=== PATIENT | male | born 1930 | race Caucasian/White ===

== ENCOUNTER 2016-11-10 05:07 | Inpatient (IN) | payer MEDICARE, OTHER ==
[~2016-11-10 05:07] MED LIST: COUMADIN6 M1 PO; FLOMAX0.4 M1 PO; HYDRALAZINE HCL50 M1 PO; LOVENOX30 MG/0.1 SC; NORVASC10 M2 PO; SYNTHROID75 MC1 PO; ZOCOR20 M1 PO
[2016-11-10 05:51] LABS: PROTHROMBIN TIME 11.9 SECONDS (9.0-13.6)
[2016-11-11 06:38] LABS: INR 1.1 INR (0.9-1.1); PROTHROMBIN TIME 12.6 SECONDS (9.0-13.6)
[2016-11-11 06:59] LABS: PLATELET COUNT 128 tho/cmm (150-450)
[2016-11-12 06:30] LABS: HGB-HEMOGLOBIN 11.8 gm/dl (13.5-17.0); PLATELET COUNT 113 tho/cmm (150-450)
[2016-11-12 06:34] LABS: INR 1.2 INR (0.9-1.1); PROTHROMBIN TIME 14.2 SECONDS (9.0-13.6)
== END 2016-11-12 11:55 | DRG 483 ==
LOC: SHSB 05:07 → ORE 07:07 → PACU 09:18 → 5EA 10:05
PROVIDERS: Anesthesiology; Hospitalist; ADMIT Orthopaedic Surgery
PROC: 0RRJ00Z Replacement of Right Shoulder Joint with Reverse Ball and Socket Synthetic Substitute, Open Approach (ICD-10-PCS; principal; 2016-11-10)
DX: M19.011 Primary osteoarthritis, right shoulder (principal); D69.6 Thrombocytopenia, unspecified; Z95.1 Presence of aortocoronary bypass graft; I10 Essential (primary) hypertension; Z86.711 Personal history of pulmonary embolism; Z79.01 Long term (current) use of anticoagulants; I25.10 Atherosclerotic heart disease of native coronary artery without angina pectoris; G47.33 Obstructive sleep apnea (adult) (pediatric); I87.2 Venous insufficiency (chronic) (peripheral); Z86.73 Personal history of transient ischemic attack (TIA), and cerebral infarction without residual deficits; R09.02 Hypoxemia; S46.011A Strain of muscle(s) and tendon(s) of the rotator cuff of right shoulder, initial encounter; X58.XXXA Exposure to other specified factors, initial encounter; E78.5 Hyperlipidemia, unspecified
CPT/HCPCS: C1713; C1776; C9290; J0690; J1650; J1885; J2250; J2270